=== PATIENT | female | born 1950 | race Caucasian/White ===

== ENCOUNTER 2023-02-25 20:46 | Emergency (ER) | payer MEDICARE, OTHER ==
[~2023-02-25] VITALS: Ht 167.6 cm; Wt 61.3 kg
[2023-02-25] MEDS ORDERED: HUMA100I3 SC (21:44)
[2023-02-25] MEDS ORDERED: BENZ-18 PO (21:44)
[2023-02-25] MEDS ORDERED: HumuLIN R (REGULAR) INSULIN (NovoLIN R) **100U/ML** PER UNIT IV ONE (22:20)
[2023-02-25] MEDS ORDERED: NS 1,000 ML IV ONE ×2 (22:20→23:45)
[2023-02-25 23:01] LABS: VENOUS BASE EXCESS -1.3 (-2.0-2.0); VENOUS HCO3 26.2 MMOL/L (23.0-27.0); VENOUS O2 SATURATION 45.9 % (60.0-80.0); VENOUS PARTIAL PRESSURE CO2 55.7 mmHg (38.0-50.0); VENOUS PARTIAL PRESSURE O2 24.7 mmHg (30.0-50.0); VENOUS STANDARD HCO3 22.3 MMOL/L; VENOUS TOTAL CO2 27.9 MMOL/L (24.0-28.0)
[2023-02-25 23:06] LABS: BASO # 0.1 10^3/uL (0.0-0.2); BASO % 0.8 % (0.0-1.0); EOS # 0.2 10^3/uL (0.0-0.5); EOS % 2.7 % (0.0-3.0); HEMATOCRIT 36.9 % (36.0-47.0); HEMOGLOBIN 12.1 g/dl (12.0-15.5); LYMPH # 2.1 10^3/uL (1.5-5.0); LYMPH % 33.1 % (24.0-44.0); MEAN CORPUSCULAR HGB CONC 32.8 g/dl (32.0-36.5); MEAN CORPUSCULAR VOLUME 97.6 fl (80.0-96.0); MONO # 0.5 10^3/uL (0.0-0.8); MONO % 8.5 % (2.0-8.0); NEUTROPHILS # 3.4 10^3/uL (1.5-8.5); NEUTROPHILS % 54.6 % (36.0-66.0); PLATELET COUNT, AUTOMATED 206 10^3/uL (150-450); RED BLOOD COUNT 3.78 10^6/uL (4.00-5.40); WHITE BLOOD COUNT 6.3 10^3/uL (4.0-10.0)
[2023-02-25 23:15] LABS: HEMOGLOBIN A1c 10.1 % (4.0-6.0)
[2023-02-25 23:41] LABS: BLOOD UREA NITROGEN 25 MG/DL (9-23); CARBON DIOXIDE LEVEL 26 MMOL/L (20-31); CHLORIDE LEVEL 92 MMOL/L (98-107); CREATININE FOR GFR 0.89 MG/DL (0.55-1.30); GLOMERULAR FILTRATION RATE > 60.0 (>39); GLUCOSE, FASTING 683 MG/DL (74-106); LIPASE 59 U/L (12-53); POTASSIUM SERUM 5.7 MMOL/L (3.5-5.1); SODIUM LEVEL 128 MMOL/L (136-145)
[2023-02-26 00:51] LABS: VENOUS BASE EXCESS 0.3 (-2.0-2.0); VENOUS HCO3 27.2 MMOL/L (23.0-27.0); VENOUS O2 SATURATION 86.9 % (60.0-80.0); VENOUS PARTIAL PRESSURE O2 54.3 mmHg (30.0-50.0); VENOUS PH 7.312 UNITS (7.330-7.430); VENOUS STANDARD HCO3 24.5 MMOL/L; VENOUS TOTAL CO2 28.9 MMOL/L (24.0-28.0)
[2023-02-26 01:14] LABS: BLOOD UREA NITROGEN 24 MG/DL (9-23); CALCIUM LEVEL 8.4 MG/DL (8.3-10.6); CARBON DIOXIDE LEVEL 27 MMOL/L (20-31); CHLORIDE LEVEL 99 MMOL/L (98-107); CREATININE FOR GFR 0.85 MG/DL (0.55-1.30); GLOMERULAR FILTRATION RATE > 60.0 (>39); GLUCOSE, FASTING 446 MG/DL (74-106); POTASSIUM SERUM 3.9 MMOL/L (3.5-5.1); SODIUM LEVEL 135 MMOL/L (136-145)
[2023-02-26 01:46] VITALS: BP 120/65; TEMP 98.7; O2SAT 99
== END 2023-02-26 02:00 | disposition home or self-care (01) ==
LOC: M ED 20:46
DX: E11.65 Type 2 diabetes mellitus with hyperglycemia (principal); Z79.4 Long term (current) use of insulin; Z79.899 Other long term (current) drug therapy; Z88.0 Allergy status to penicillin
CPT/HCPCS: 80048; 81001; 82010; 82803; 83036; 83690; 85025; 93041; 94760; 96360; 96361; 99284; J1815